=== PATIENT | female | born 1990 | race Hispanic/Latino ===

== ENCOUNTER 2023-10-02 22:15 | Emergency (ER) | payer OTHER ==
[~2023-10-02] VITALS: Ht 162.6 cm; Wt 99.8 kg
[2023-10-02 22:22] VITALS: TEMP 98.2
[2023-10-02] MEDS ORDERED: ONDANSETRON HCL INJ 2MG/ML 2ML 2 MG/ML VIAL ONE (22:32)
[2023-10-02] MEDS: ONDANSETRON HCL INJ 2MG/ML 2ML 2 MG/ML VIAL IV STA (22:35)
[2023-10-02 22:42] LABS: BASOPHILS # (AUTO) 0.1 (0.0-0.1); BASOPHILS % 0.6 % (0.0-1.0); EOSINOPHILS # (AUTO) 0.2 (0.0-0.4); EOSINOPHILS % 1.8 % (0.0-6.0); HEMATOCRIT 41.2 % (34.2-44.1); HEMOGLOBIN 12.5 g/dL (12.0-16.0); LYMPHOCYTES % 35.9 % (18.0-39.1); MEAN CORPUSCULAR HEMOGLOBIN 24.5 pg (28-32); MEAN CORPUSCULAR HGB CONC 30.3 g/dL (31-35); MEAN CORPUSCULAR VOLUME 80.6 fL (81-99); MONOCYTES # (AUTO) 0.7 (0.2-0.8); MONOCYTES % 5.8 % (4.4-11.3); NEUTROPHILS # (AUTO) 6.2 (2.1-6.9); NEUTROPHILS % 55.6 % (38.7-80.0); PLATELET COUNT 364 x10e3/uL (140-360); RED BLOOD COUNT 5.11 x10e6/uL (3.6-5.1); WHITE BLOOD COUNT 11.21 x10e3/uL (4.8-10.8)
[2023-10-02 22:44] LABS: BILIRUBIN,URINE NEGATIVE (NEGATIVE); CLARITY,URINE HAZY (CLEAR); COLOR,URINE YELLOW (YELLOW); GLUCOSE, URINE NEGATIVE (NEGATIVE); KETONES,URINE NEGATIVE (NEGATIVE); LEUKOCYTE ESTERASE ,URINE TRACE (NEGATIVE); NITRITE,URINE NEGATIVE (NEGATIVE); PH,URINE 6 (5 - 7); PROTEIN,URINE DIPSTICK 2+ (NEGATIVE); URINE UROBILINOGEN 0.2 mg/dL (0.2 - 1)
[2023-10-02 22:50] LABS: WBC,URINE (MAN) 21-50 /HPF (0-5)
[2023-10-02 22:52] LABS: BACTERIA,URINE MANY /HPF; EPITHELIAL CELLS,URINE MANY /LPF; MUCUS,URINE MANY (RARE)
[2023-10-02 22:59] LABS: ANION GAP 13.5 mmol/L (8-16); CALCIUM 9.7 mg/dL (8.4-10.2); CREATININE, SERUM 0.93 mg/dL (0.57-1.11); POTASSIUM 3.5 mmol/L (3.5-5.1)
[2023-10-02] MEDS: KETOROLAC TROMETHAMINE 30 MG/ML VIAL IV STA (23:28)
[2023-10-03] MEDS ORDERED: ONDANSETRON ODT4 MG SL (01:53)
[2023-10-03] MEDS ORDERED: NAPROSYN500 MG PO (01:53)
[2023-10-03] MEDS ORDERED: CYCLOBENZAPRINE5 MG PO (01:53)
[2023-10-03] MEDS ORDERED: CEFDINIR300 MG PO (01:53)
[2023-10-03] MEDS: ORPHENADRINE CITRATE 30 MG/ML VIAL IM ONE (02:02)
[2023-10-03 02:15] VITALS: PULSE 55; RESP 16
[2023-10-03 02:30] VITALS: BP 102/64; O2SAT 99
== END 2023-10-03 02:31 | disposition home or self-care (01) ==
LOC: ER 22:22
DX: R10.31 Right lower quadrant pain (principal); S39.011A Strain of muscle, fascia and tendon of abdomen, initial encounter; X50.0XXA Overexertion from strenuous movement or load, initial encounter; Y92.89 Other specified places as the place of occurrence of the external cause; N39.0 Urinary tract infection, site not specified
CPT/HCPCS: 36415; 74176; 80048; 81001; 84702; 85025; 99284; J1885; J2360; J2405